=== PATIENT | female | born 1945 ===

== ENCOUNTER 2018-07-02 09:50 | Outpatient (CLI) | payer OTHER | END 2018-07-02 09:54 | disposition home or self-care (01) | LOC: SONOGRAMA 09:50 | DX: E04.1 Nontoxic single thyroid nodule (principal) ==

== ENCOUNTER 2023-07-30 09:15 | Inpatient (IN) | payer OTHER ==
[~2023-07-30] VITALS: Ht 157.5 cm; Wt 69.4 kg
[2023-07-30 12:06] LABS: HEMATOCRIT 44.2 % (36.0-45.00); HEMOGLOBIN 14.9 g/dL (12.0-15.00); MEAN CELL VOLUME 93.8 fL (80.00-100.00); MEAN CORPUSCULAR HEMOGLOBIN 31.7 pg (27.00-32.0); MEAN CORPUSCULAR HGB CONC 33.7 g/dl (32.0-36.0); PLATELET COUNT 209 K/uL (150-450); RED BLOOD COUNT 4.71 M/uL (4.00-6.00); RED CELL DISTRIBUTION WIDTH 14.4 % (11.5-14.5)
[2023-07-30 12:37] LABS: INR 0.98; PARTIAL THROMBOPLASTIN TIME 27.6 SECONDS (22.0-34.0); PROTHROMBIN TIME 10.3 SECONDS (9.0-11.5)
[2023-07-30 12:43] LABS: ALBUMIN 4.2 gm/dL (3.4-5.0); BILIRUBIN TOTAL 0.62 mg/dL (0.3-1.2); CALCIUM 10.4 mg/dL (8.5-10.1); CREATININE SERUM 0.89 mg/dL (0.55-1.02); GFR 61.67; GLOBULINA 3.5 G/DL (2.4-3.5); POTASSIUM 4.35 mEq/L (3.5-5.1); TOTAL PROTEIN 7.7 gm/dL (6.4-8.2)
[2023-07-30 12:46] LABS: PH,URINE 6.5 (5.0-8.0); URINE APPEARANCE Clear; URINE BILIRRUBIN Negative (NEGATIVE); URINE BLOOD Trace; URINE COLOR Yellow; URINE GLUCOSE Negative (NEGATIVE); URINE LEUKOCYTE Negative; URINE NITRATE Negative; URINE PROTEIN Negative (NEGATIVE); URINE UROBILINOGEN 0.2 E.U./dl
[2023-07-30] MEDS ORDERED: BISOPROLOL FUMAR5 MG PO (12:48)
[2023-07-30] MEDS ORDERED: PROLIA60 MG/1 ML SUBCUTANEO (12:48)
[2023-07-30 12:49] LABS: URINE BACTERIA 6.2 uL (0.0-1933)
[2023-07-30] MEDS ORDERED: CRESTOR40 MG PO (12:49)
[2023-07-30] MEDS ORDERED: CYMBALTA30 MG PO (12:49)
[2023-07-30 13:09] LABS: URINE EPITHELIAL CELLS 1.3 uL (0.0-38.8); URINE WBC 1.5 uL (0.0-23.2)
[2023-08-04] MEDS ORDERED: CEFAZOLIN SODIUM 1,000 MG VIAL ONE (07:05)
[2023-08-04] MEDS ORDERED: LIDOCAINE HCL 1%/Epi 20ML VIAL IJ ONE (08:07)
[2023-08-04] MEDS ORDERED: BUPIVACAINE HCL/PF 0.5% 30ML ML ONE (08:07)
[2023-08-04] MEDS ORDERED: CEFAZOLIN SODIUM 1,000 MG VIAL IV ONE (09:00)
[2023-08-04] MEDS ORDERED: TERIPARATIDE (09:24)
[2023-08-04] MEDS ORDERED: BISOPROLOL-HCT1 EAC1 (09:25)
[2023-08-04] MEDS ORDERED: MORPHINE SULFATE 4 MG/ML VIAL IV SCH (09:34)
== END 2023-08-05 11:00 | disposition home or self-care (01) | DRG 328 ==
LOC: O/R 08-04 05:46 → SURH 08-04 07:00
PROVIDERS: ADMIT Surgery; ATTEND Surgery
PROC: 8E0W4CZ Robotic Assisted Procedure of Trunk Region, Percutaneous Endoscopic Approach (ICD-10-PCS; 2023-08-04)
PROC: 0BQT4ZZ Repair Diaphragm, Percutaneous Endoscopic Approach (ICD-10-PCS; principal; 2023-08-04 07:00)
DX: K44.9 Diaphragmatic hernia without obstruction or gangrene (principal); Z20.822 Contact with and (suspected) exposure to COVID-19
CPT/HCPCS: 43281; S2900